=== PATIENT | male | born 1975 | race Hispanic/Latino ===

== ENCOUNTER 2017-04-14 09:03 | Day surgery (SDC) | payer OTHER ==
[~2017-04-14] VITALS: Ht 177.8 cm; Wt 79.8 kg
[~2017-04-14 09:03] MED LIST: GLYCOPYRROLATE INJ 0.2 MG/ML 2 ML VIAL As Ordered ONE; IBUP-1114 PO; LIDOCAINE 2% INJ 100 MG/5 ML SDV (FOR ANES.) As Ordered ONE; LORT5TAB PO; MIDAZOLAM INJ 2 MG/2 ML VIAL (J2250) As Ordered ONE; NEOSTIGMINE 10 MG/10 ML VIAL (J2710) As Ordered ONE; ONDANSETRON 4MG/2ML VIAL (J2405) As Ordered ONE; PROPOFOL 200 MG/20 ML VIAL As Ordered ONE; ROCURONIUM BROMIDE 50 MG/5 ML VIAL/SYRINGE As Ordered ONE; VITA1CAP40 PO; dexameTHASONE 4 MG/ML 1ML VIAL (J1100) As Ordered ONE; fentaNYL 100 MCG/2 ML INJECTION (J3010) As Ordered ONE
[2017-04-14] MEDS ORDERED: CLINDAMYCIN 600 MG in APPROPRIATE DILUENT 1 EA IV ONE (09:15)
[2017-04-14] MEDS ORDERED: LR 1,000 ML IV ONE (09:15)
[2017-04-14] MEDS ORDERED: BUPIVACAINE/EPIN 0.25% 30 ML VIAL As Ordered ONE (10:22)
[2017-04-14] MEDS ORDERED: HYDROmorphone HCL 2 MG/ML 1ML VIAL (J1170) As Ordered ONE (11:18)
[2017-04-14] MEDS ORDERED: KETOROLAC 60 MG/2 ML VIAL (J1885) As Ordered ONE (11:21)
[2017-04-14] MEDS ORDERED: SUGAMMADEX SODIUM 500 MG/5 ML VIAL (BRIDION) As Ordered ONE (11:32)
[2017-04-14] MEDS ORDERED: NORCO, ANEXSIA 5/325MG TABLET (HYDROcodone/ACETAMINOPHEN) PO PRN (12:45)
[2017-04-14] MEDS ORDERED: fentaNYL 100 MCG/2 ML INJECTION (J3010) IV PRN (12:45)
[2017-04-14] MEDS ORDERED: LR 1,000 ML IV SCH (12:45)
[2017-04-14] MEDS ORDERED: ONDANSETRON 4MG/2ML VIAL (J2405) IV PRN (12:45)
[2017-04-14] MEDS ORDERED: MORPHINE 2 MG/ML 1ML SYRINGE IV PRN (12:45)
[2017-04-14] MEDS ORDERED: METOCLOPRAMIDE INJ 10MG/2ML VIAL (J2765) IV PRN (12:45)
[2017-04-14] MEDS: PERCOCET 5MG/325MG TAB PO PRN ×2 (12:59→13:48)
[2017-04-14] MEDS ORDERED: PERCOCET 5MG/325MG TAB As Ordered ONE (13:46)
[2017-04-14 16:00] VITALS: BP 123/58
--- NOTE | 2017-04-14 18:33 | RO ---
DATE OF PROCEDURE: 04/14/2017 PREOPERATIVE DIAGNOSIS: Symptomatic cholelithiasis. POSTOPERATIVE DIAGNOSIS: Symptomatic cholelithiasis. PROCEDURE: Laparoscopic cholecystectomy. SURGEON: Dr. Carbone LABOR REPRESENTATIVE: Dr. Bassett ANESTHESIA: General. ESTIMATED BLOOD LOSS: 5 COMPLICATIONS: None. INDICATIONS FOR PROCEDURE: The patient 42-year-old male who presents with a history of right upper quadrant abdominal pain found to have likely symptomatic cholelithiasis. Recommendations to proceed with laparoscopic possible open cholecystectomy. Risks, benefits of the procedure not limited but including bleeding, infection, hernia formation, damage surrounding structure need further surgery discussed detail with the patient. Informed consent was obtained procedure was planned. PROCEDURE: The patient brought back to operating room six after sufficient sedation the abdomen was sterilely prepped and draped. Next time-out was done to firm proper patient procedure. Following that a 5 mm incision made in left lower quadrant. Veress needle was inserted and the abdomen was insufflated to 50 mmHg. Next a 5 mm OptiVu port was used in left lower quadrant to gain access. Once the abdomen was entered the mesh at the umbilical hernia site was visualized along with multiple omental adhesions to this. I was able to place two 5 mm ports from this point over the right upper quadrant and then looking from right side I was able to see a clear spot superior to the umbilicus in the midline above the mesh where I was able to place another 5 mm port for the camera. Camera was then placed there and an 11 mm port was placed subxiphoid. The gallbladder fundus was elevated held up towards the right shoulder, cystic duct and cystic artery were both dissected free using combination of blunt and sharp dissection. Once they are both clearly identified they are both doubly clipped and cut. The gallbladder was then removed from gallbladder fossa using electrocautery. The gallbladder was then brought out through the subxiphoid port site using a 10 mm EndoCatch bag. Right upper quadrant was examined to confirm hemostasis. There was no signs of any bleeding. Abdomen was then desufflated. Skin incisions were closed with 4-0 Vicryl subcuticular sutures. The abdomen was cleaned and dried. Steri-Strips, 4x4, and tape were applied thus ending the procedure.
== END 2017-04-14 16:01 | disposition home or self-care (01) ==
LOC: M SDC 09:03
PROVIDERS: ATTEND Surgery
DX: K80.20 Calculus of gallbladder without cholecystitis without obstruction (principal); F43.10 Post-traumatic stress disorder, unspecified; G47.30 Sleep apnea, unspecified; Z87.891 Personal history of nicotine dependence; Z88.0 Allergy status to penicillin
CPT/HCPCS: 47562; 88304; J1100; J1170; J1885; J2250; J2405; J3010

== ENCOUNTER → 2018-06-12 | Outpatient (CLI) | payer OTHER | LOC: M RAD 06:25 | DX: K76.0 Fatty (change of) liver, not elsewhere classified (principal); K43.2 Incisional hernia without obstruction or gangrene; R19.06 Epigastric swelling, mass or lump; R10.13 Epigastric pain; Z90.49 Acquired absence of other specified parts of digestive tract | CPT/HCPCS: 76705 ==

== ENCOUNTER 2018-07-23 09:41 | Day surgery (SDC) | payer OTHER ==
[~2018-07-23] VITALS: Ht 175.3 cm; Wt 87.1 kg
[~2018-07-23 09:41] MED LIST changes: +CLINDAMYCIN 600 MG in APPROPRIATE DILUENT 1 EA IV ONE; -GLYCOPYRROLATE INJ 0.2 MG/ML 2 ML VIAL As Ordered ONE; -LIDOCAINE 2% INJ 100 MG/5 ML SDV (FOR ANES.) As Ordered ONE; +LR 1,000 ML IV ONE; -MIDAZOLAM INJ 2 MG/2 ML VIAL (J2250) As Ordered ONE; -NEOSTIGMINE 10 MG/10 ML VIAL (J2710) As Ordered ONE; -ONDANSETRON 4MG/2ML VIAL (J2405) As Ordered ONE; -PROPOFOL 200 MG/20 ML VIAL As Ordered ONE; -ROCURONIUM BROMIDE 50 MG/5 ML VIAL/SYRINGE As Ordered ONE; -VITA1CAP40 PO; +VITA50005 PO; -dexameTHASONE 4 MG/ML 1ML VIAL (J1100) As Ordered ONE; -fentaNYL 100 MCG/2 ML INJECTION (J3010) As Ordered ONE
[2018-07-23] MEDS ORDERED: ONDANSETRON 4MG/2ML VIAL (J2405) As Ordered ONE (10:40)
[2018-07-23] MEDS ORDERED: KETOROLAC 60 MG/2 ML VIAL (J1885) As Ordered ONE (10:40)
[2018-07-23] MEDS ORDERED: dexameTHASONE 4 MG/ML 1ML VIAL (J1100) As Ordered ONE (10:40)
[2018-07-23] MEDS ORDERED: PROPOFOL 200 MG/20 ML VIAL As Ordered ONE (10:40)
[2018-07-23] MEDS ORDERED: LIDOCAINE 2% INJ 100 MG/5 ML SDV (FOR ANES.) As Ordered ONE (10:40)
[2018-07-23] MEDS ORDERED: ROCURONIUM BROMIDE 50 MG/5 ML VIAL As Ordered ONE (10:40)
[2018-07-23] MEDS ORDERED: fentaNYL 250 MCG/5 ML INJECTION (J3010) As Ordered ONE (10:40)
[2018-07-23] MEDS ORDERED: MIDAZOLAM INJ 2 MG/2 ML VIAL (J2250) As Ordered ONE (10:40)
[2018-07-23] MEDS ORDERED: BUPIVACAINE/EPIN 0.25% 30 ML VIAL As Ordered ONE (11:20)
[2018-07-23] MEDS ORDERED: KETAMINE HCL 200 MG/20 ML VIAL As Ordered ONE (11:45)
[2018-07-23] MEDS ORDERED: SUGAMMADEX SODIUM 500 MG/5 ML VIAL (BRIDION) As Ordered ONE (12:02)
[2018-07-23] MEDS ORDERED: LR 1,000 ML IV SCH (13:00)
[2018-07-23] MEDS ORDERED: ONDANSETRON 4MG/2ML VIAL (J2405) IV PRN (13:00)
[2018-07-23] MEDS ORDERED: NORCO, ANEXSIA 5/325MG TABLET (HYDROcodone/ACETAMINOPHEN) PO PRN (13:15)
[2018-07-23] MEDS: MORPHINE 10 MG/ML 1ML VIAL (J2270) IV PRN ×5 (13:45→14:05)
[2018-07-23] MEDS: PERCOCET 5MG/325MG TAB PO PRN ×2 (13:45→14:15)
[2018-07-23] MEDS ORDERED: fentaNYL 100 MCG/2 ML INJECTION (J3010) As Ordered ONE (14:06)
[2018-07-23] MEDS ORDERED: PERCOCET 5MG/325MG TAB As Ordered ONE (14:06)
[2018-07-23] MEDS: fentaNYL 100 MCG/2 ML INJECTION (J3010) IV PRN ×4 (14:10→14:25)
[2018-07-23 18:30] VITALS: BP 127/72
--- NOTE | 2018-07-25 13:46 | RO ---
DATE OF PROCEDURE: 07/23/2018 PREOPERATIVE DIAGNOSIS: Incarcerated incisional hernia. POSTOPERATIVE DIAGNOSIS: Incarcerated incisional hernia. PROCEDURE: Laparoscopic incarcerated incisional hernia repair. SURGEON: Cesar Carbone DO DIRECT ENTRY MIDWIFE: Dr. Bassett ANESTHESIA: General. ESTIMATED BLOOD LOSS: 5 mL. COMPLICATIONS: None. INDICATIONS FOR PROCEDURE: Patient is a 43-year-old male who presents with epigastric abdominal pain, found to have an incisional hernia from previous gallbladder surgery. Recommendation was to proceed laparoscopic possible open repair. Risks and benefits of procedure not limited to but including bleeding, infection, hernia formation, hernia recurrence, damage to surrounding structure need for further surgery were discussed in detail with the patient. Informed consent was obtained and procedure was planned. PROCEDURE: Patient brought back to operating room 1. After sufficient sedation, the abdomen was sterilely prepped and draped. Next, a time out was done to confirm proper patient and proper procedure. Following that, a 5 mm incision was made in the left upper quadrant. A Veress needle was inserted and the abdomen was insufflated to 15 mmHg. Next, Veress needle was then removed and a 5 mm OptiView port was used to gain access to the abdomen. Once the end was entered, another 5 mm port was placed in the left lower abdomen. The falciform was found protruding up into the defect from his epigastric port site. The falciform was gently dissected free and the hernia sac completely reduced. Once this was completed, a 9 cm round Parietex mesh had #0 Vicryl sutures placed in all four corners, were all placed inside of the abdomen. Transvaginal sutures brought out through the abdominal wall using Edgar-Cha needle. The mesh was then secured in place using a SecureStrap Tacker and two rows of tacks. Once this was all completed, the abdomen was desufflated. Skin incisions were closed with #4-0 Vicryl subcuticular sutures. The abdomen was cleaned and dried. Steri-Strips, 4x4 and tape were applied thus ending procedure.
== END 2018-07-23 18:45 | disposition home or self-care (01) ==
LOC: M SDC 09:41
PROVIDERS: ATTEND Surgery
DX: K43.0 Incisional hernia with obstruction, without gangrene (principal); I10 Essential (primary) hypertension; M54.9 Dorsalgia, unspecified; F43.10 Post-traumatic stress disorder, unspecified; R06.83 Snoring; G47.33 Obstructive sleep apnea (adult) (pediatric); Z88.0 Allergy status to penicillin
CPT/HCPCS: 49655; C1781; J1100; J1885; J2250; J2270; J2405; J3010

== ENCOUNTER → 2019-04-01 | Outpatient (REF) | payer OTHER ==
[~2019-04-01] MED LIST changes: -CLINDAMYCIN 600 MG in APPROPRIATE DILUENT 1 EA IV ONE; -LR 1,000 ML IV ONE
== END ==
LOC: M SFHCLERA 15:38
PROVIDERS: ATTEND Nurse Practitioner Family
DX: R53.81 Other malaise (principal)

== ENCOUNTER → 2019-09-20 | Outpatient (CLI) | payer OTHER ==
--- NOTE | 2019-09-20 08:21 | REP ---
Limited anterior abdominal wall sonogram: History: Ventral hernia without obstruction or gangrene. Findings: Scanning in the area concern to the right of midline in the mid upper abdomen demonstrates a peritoneal defect measuring 0.5 cm in craniocaudal by 1.1 cm in right to left dimension. This transmits a small quantity of abdominal fat. The defect size does not appear to change with Valsalva but the of mesenteric fat protrudes with Valsalva. Impression: Small ventral hernia defect seen transmitting abdominal fat. Electronically Signed by Reinaldo Manjarrez MD 09/20/2019 08:13 A
== END ==
LOC: M RAD 07:13
PROVIDERS: ATTEND Surgery
DX: K43.9 Ventral hernia without obstruction or gangrene (principal)

== ENCOUNTER 2020-04-03 06:16 | Emergency (ER) | payer OTHER ==
[~2020-04-03] VITALS: Ht 175.3 cm; Wt 90.9 kg
[2020-04-03] MEDS ORDERED: KETOROLAC 30 MG/ML 1ML VIAL IV ONE (06:30)
[2020-04-03] MEDS ORDERED: ONDANSETRON 4MG/2ML VIAL IV ONE (06:30)
[2020-04-03] MEDS ORDERED: NS 1,000 ML IV ONE (06:30)
[2020-04-03 07:07] LABS: BASO # 0.1 10^3/uL (0.0-0.2); BASO % 0.7 % (0.0-1.0); EOS # 0.1 10^3/uL (0.0-0.5); EOS % 1.2 % (0.0-3.0); HEMOGLOBIN 15.2 g/dl (13.5-17.5); LYMPH # 2.8 10^3/uL (1.5-5.0); LYMPH % 34.7 % (24.0-44.0); MEAN CORPUSCULAR HEMOGLOBIN 30.2 pg (27.0-33.0); MEAN CORPUSCULAR HGB CONC 32.3 g/dl (32.0-36.5); MEAN CORPUSCULAR VOLUME 93.4 fl (80.0-96.0); MONO # 0.7 10^3/uL (0.0-0.8); MONO % 8.8 % (0.0-5.0); NEUTROPHILS # 4.3 10^3/uL (1.5-8.5); NEUTROPHILS % 54.2 % (36.0-66.0); PLATELET COUNT, AUTOMATED 333 10^3/uL (150-450); RED BLOOD COUNT 5.03 10^6/uL (4.30-6.10)
[2020-04-03 07:35] LABS: ALBUMIN 3.8 GM/DL (3.2-5.2); ALT/SGPT 78 U/L (12-78); BILIRUBIN,DIRECT 0.1 MG/DL (0.0-0.2); BILIRUBIN,TOTAL 0.4 MG/DL (0.2-1.0); BLOOD UREA NITROGEN 11 MG/DL (7-18); CALCIUM LEVEL 9.3 MG/DL (8.5-10.1); CARBON DIOXIDE LEVEL 26 MEQ/L (21-32); CHLORIDE LEVEL 106 MEQ/L (98-107); CREATININE FOR GFR 1.03 MG/DL (0.70-1.30); GLOMERULAR FILTRATION RATE > 60.0 (>60); GLUCOSE, FASTING 109 MG/DL (70-100); LIPASE 214 U/L (73-393); POTASSIUM SERUM 4.3 MEQ/L (3.5-5.1); SODIUM LEVEL 138 MEQ/L (136-145); TOTAL PROTEIN 7.4 GM/DL (6.4-8.2)
--- NOTE | 2020-04-03 07:39 | REPVR ---
PROCEDURE INFORMATION: Exam: CT Abdomen And Pelvis Without Contrast Exam date and time: 04/03/2020 6:54 AM Age: 45 years old Clinical indication: Abdominal pain; Flank; Left; Additional info: L flank pain with HX of kidney stone TECHNIQUE: Imaging protocol: Computed tomography of the abdomen and pelvis without contrast. Radiation optimization: All CT scans at this facility use at least one of these dose optimization techniques: automated exposure control; mA and/or kV adjustment per patient size (includes targeted exams where dose is matched to clinical indication); or iterative reconstruction. COMPARISON: Abdomen, limited US 09/20/2019 7:20 AM FINDINGS: Limitations: Evaluation is somewhat limited by lack of IV contrast. Lungs: The visualized lung bases are essentially clear. Liver: The liver is fatty in density. It appears otherwise grossly unremarkable. Gallbladder and bile ducts: Cholecystectomy clips are present. Pancreas: Grossly unremarkable. Spleen: Grossly unremarkable. Adrenals: Grossly unremarkable. Kidneys and ureters: Mild left-sided hydronephrosis and proximal hydroureter secondary to a 4 x 3 x 2 mm proximal to mid left ureteral stone. Beyond this, the ureter is not dilated, and no additional ureteral calculus is identified. Both kidneys contain multiple additional nonobstructing stones, measuring up to 2 mm on either side. There is no right-sided hydronephrosis or ureteral stone. Stomach and bowel: The unopacified small bowel is not significantly distended to suggest obstruction. The large bowel is grossly unremarkable in appearance. Appendix: The appendix appears normal. Intraperitoneal space: No free air or significant free fluid. Vasculature: Unremarkable. No abdominal aortic aneurysm. Lymph nodes: No gross pathologic lymphadenopathy. Urinary bladder: Grossly unremarkable. Reproductive: Unremarkable as visualized. Bones/joints: Degenerative changes involve the spine. Soft tissues: Small fat containing bilateral inguinal hernias. IMPRESSION: 1. Mild left-sided hydronephrosis and proximal hydroureter secondary to a 4 x 3 x 2 mm proximal to mid left ureteral stone. 2. Small additional nonobstructing bilateral nephrolithiasis. 3. Fatty liver. 4. Small fat containing bilateral inguinal hernias. Electronically signed by: Kyle Mathew On 04/03/2020 07:39:23 AM
[2020-04-03] MEDS ORDERED: FLOM0.4C39 PO (07:46)
[2020-04-03] MEDS ORDERED: KETO10TAB PO (07:46)
[2020-04-03] MEDS ORDERED: NORC1TAB7 PO ×2 (07:46→07:47)
[2020-04-03 08:21] VITALS: BP 133/82
== END 2020-04-03 08:33 | disposition home or self-care (01) ==
LOC: M ED 06:16
DX: N13.2 Hydronephrosis with renal and ureteral calculous obstruction (principal); K76.0 Fatty (change of) liver, not elsewhere classified; K40.20 Bilateral inguinal hernia, without obstruction or gangrene, not specified as recurrent; Z88.0 Allergy status to penicillin
CPT/HCPCS: 74176; 80048; 80076; 81001; 83690; 85025; 96361; 96374; 96375; 99284; J1885; J2405

== ENCOUNTER → 2025-03-11 | Outpatient (CLI) | payer OTHER ==
[~2025-03-11] MED LIST changes: +KETO10TAB PO; +NORC1TAB7 PO; +TAMS-18 PO
== END ==
LOC: M PLAIMG 07:00
PROVIDERS: ATTEND Family Medicine
DX: G43.911 Migraine, unspecified, intractable, with status migrainosus (principal); G93.89 Other specified disorders of brain